=== PATIENT | female | born 1985 | race Caucasian/White ===

== ENCOUNTER 2016-08-31 09:24 | Inpatient (IN) | payer OTHER ==
[~2016-08-31] VITALS: Ht 167.6 cm; Wt 88.0 kg
[~2016-08-31 09:24] MED LIST: IBU800 MG PO
[2016-08-31] MEDS ORDERED: SUBOXONE 8 MG-1 EACH PO (10:08)
[2016-08-31] MEDS ORDERED: PRENATAL ONE D1 EACH PO (10:09)
[2016-08-31 10:57] LABS: ABSOLUTE BASOPHIL COUNT 0 /CUMM (0.0-0.2); ABSOLUTE EOSINOPHIL COUNT 0.1 /CUMM (0.0-0.7); ABSOLUTE GRANULOCYTE CT 5.7 /CUMM (1.4-6.5); ABSOLUTE LYMPH COUNT 2.3 /CUMM (1.2-3.4); ABSOLUTE MONOCYTE COUNT 0.7 /CUMM (0.10-0.60); BASOPHIL % 0.4 % (0.0-2.0); EOSINOPHIL % 1.4 % (0-5); GRANULOCYTE % 64.5 % (42.2-75.2); HEMATOCRIT 37.4 % (37-47); MEAN CORPUSCULAR HGB 29.8 PG (27.0-31.0); MEAN CORPUSCULAR VOLUME 87.7 FL (81.0-99.0); MEAN PLATELET VOLUME 9.1 FL (7.4-10.4); PLATELET COUNT 244 /CUMM (130-400); RBC DISTRIBUTION WIDTH 13.8 % (11.5-14.5); RED BLOOD CELL CT 4.27 /CUMM (4.20-5.40); WHITE BLOOD CELL COUNT 8.9 /CUMM (4.8-10.8)
--- NOTE | 2016-09-14 09:30 | Surgical Discharge Summary ---
Visit Information Visit Dates Admission Date: 08/31/16 Discharge Date: 08/31/16 History of Present Illness Chief Complaint: Desires elective induction Medical History History of MRSA: No History of VRE: No History of CDIFF: No Influenza Vaccine: 06/16/13 Surgical History Pertinent Surgical History: none Psychosocial History Who Do You Live With? Patient/Self Services at Home: None What is Your Primary Language? Welsh Review of Systems: Negative Hospital Course Course Attending Physician: FELIX WHYTE MD Primary Care Physician: PATIENT HAS NO PRIMARY CARE DR Hospital Course: Patient was admitted for induction of labor and was placed on Pitocin for 10 hours. She made no cervical change and was discharged home Allergies: Coded Allergies: NO KNOWN ALLERGIES (08/31/16) Disposition Summary Disposition Principal Diagnosis: Term Additional Diagnosis: Poor Cheek score Discharge Disposition: home or self care Discharge Instructions General Discharge Information Code Status: Full Code Patient's Diet: Regular Patient's Activity: Pelvic rest Follow-Up Instructions/Appts: [address] Whyte's office
--- NOTE | 2016-09-14 09:38 | Discharge Summary ---
PATIENT CARE UNIT CONFIDENTIAL COPY ADMITTED: 08/31/16 DISCHARGED: 08/31/16 Visit Information Visit Dates Admission Date: 08/31/16 Discharge Date: 08/31/16 History of Present Illness Chief Complaint: Desires elective induction Medical History History of MRSA: No History of VRE: No History of CDIFF: No Influenza Vaccine: 06/16/13 Surgical History Pertinent Surgical History: none Psychosocial History Who Do You Live With? Patient/Self Services at Home: None What is Your Primary Language? German Review of Systems: Negative Hospital Course Course Attending Physician: FELIX WHYTE MD Primary Care Physician: PATIENT HAS NO PRIMARY CARE DR Hospital Course: Patient was admitted for induction of labor and was placed on Pitocin for 10 hours. She made no cervical change and was discharged home Allergies: Coded Allergies: NO KNOWN ALLERGIES (08/31/16) Disposition Summary Disposition Principal Diagnosis: Term Additional Diagnosis: Poor Cheek score Discharge Disposition: home or self care Discharge Instructions General Discharge Information Code Status: Full Code Patient's Diet: Regular Patient's Activity: Pelvic rest Follow-Up Instructions/Appts: [address] Whyte's office DICTATED BY: FELIX WHYTE MD DATE/TIME DICTATED:09/14/16924 [employer] SAWYER:NADIR DATE/TIME TRANSCRIBED:09/14/16924 REPORT NUMBER:[id number] CONFIDENTIAL, DO NOT COPY WITHOUT APPROPRIATE AUTHORIZATION.
== END 2016-08-31 19:30 | DRG 566 ==
LOC: GNO 09:24
PROVIDERS: ADMIT Obstetrics & Gynecology
PROC: 3E033VJ Introduction of Other Hormone into Peripheral Vein, Percutaneous Approach (ICD-10-PCS; principal; 2016-08-31)
DX: O61.0 Failed medical induction of labor (principal); Z3A.41 41 weeks gestation of pregnancy
CPT/HCPCS: GNOP; 80307; 81001; 87389; J7120

== ENCOUNTER 2016-09-04 08:33 | Inpatient (IN) | payer OTHER ==
[~2016-09-04] VITALS: Ht 167.6 cm; Wt 87.1 kg
[~2016-09-04 08:33] MED LIST changes: +PRENATAL ONE D1 EACH PO; +SUBOXONE 8 MG-1 EACH PO
[2016-09-04 09:51] LABS: ABSOLUTE BASOPHIL COUNT 0 /CUMM (0.0-0.2); ABSOLUTE EOSINOPHIL COUNT 0.1 /CUMM (0.0-0.7); ABSOLUTE GRANULOCYTE CT 6.8 /CUMM (1.4-6.5); ABSOLUTE LYMPH COUNT 2.3 /CUMM (1.2-3.4); ABSOLUTE MONOCYTE COUNT 0.6 /CUMM (0.10-0.60); BASOPHIL % 0.2 % (0.0-2.0); EOSINOPHIL % 1.5 % (0-5); GRANULOCYTE % 68.9 % (42.2-75.2); HEMATOCRIT 38.2 % (37-47); MEAN CORPUSCULAR HGB 29.5 PG (27.0-31.0); MEAN CORPUSCULAR HGB CONC 33.2 G/DL (33.0-37.0); MEAN CORPUSCULAR VOLUME 88.9 FL (81.0-99.0); MEAN PLATELET VOLUME 8.9 FL (7.4-10.4); PLATELET COUNT 244 /CUMM (130-400); WHITE BLOOD CELL COUNT 9.9 /CUMM (4.8-10.8)
--- NOTE | 2016-09-04 14:41 | Labor & Delivery Summary ---
Delivery Summary Vaginal Delivery: Vaginal: vertex : : vacuum Episiotomy/Lacerations: Episiotomy/Lacerations: epis Type: RML Repair: layered Anesthesia: epi Placenta: Placenta: spontanteous, normal, 3 vessel Anesthesia: epidural Cord PH Value: 7.24 Baby's Weight: p sts Apgars - 1 Min: 9 Apgars - 5 Min: 9
--- NOTE | 2016-09-04 15:00 | History & Physical ---
General Information and HPI MD Statement: I have seen and personally examined WHITLEY GUTIERRES and documented this H&P. The patient is a 30 year old female at [41] weeks and [5] days gestation who presented with a chief complaint of [IOL]. Source of Information: police History of Present Illness: 30yo lmp 11/18/15 EDC 08/24/16 for IOL; care sig for suboxone 8mg bid. 7cm on initial exam. Allergies/Medications Allergies: Coded Allergies: NO KNOWN ALLERGIES (08/31/16) Home Med list Buprenorphine HCl/Naloxone HCl (Suboxone 8 MG-2 MG Sl Film) 8 MG-2 MG FILM 8 MG PO BID MENTAL HEALTH (Reported) Vit No.129/Iron/FA ( One Daily Tablet) 27 MG IRON-800 MCG TABLET 1 TAB PO DAILY (Reported) Past History user experience analyst History : 6 Para: 3 Last Menstrual Period: 11/18/15 Estimated Delivery Date: 08/24/16 Past user experience analyst History: non-contributory Surgical History Pertinent Surgical History: none Past Family/Social History Psychosocial History Smoking Status: Current Everyday Smoker Review of Systems Review of Systems Constitutional: Reports: no symptoms. EENTM: Reports: no symptoms. Cardiovascular: Reports: no symptoms. Respiratory: Reports: no symptoms. GI: Reports: no symptoms. Genitourinary: Reports: no symptoms. Musculoskeletal: Reports: no symptoms. Skin: Reports: no symptoms. Neurological/Psychological: Reports: no symptoms. Hematologic/Endocrine: Reports: no symptoms. Immunologic/Allergic: Reports: no symptoms. All Other Systems: Reviewed and Negative Exam & Diagnostic Data Last 24 Hrs of Vital Signs/I&O Intake & Output 09/04 1600 09/04 0800 09/04 0000 Intake Total Output Total Balance Patient 192 lb Weight Obstetric Exam Wgt Gained During : 36 Pelvimetry: gynecoid Dilation (cm): 7 Effacement (%): 100 Station: 0 Membranes: intact Fluid: clear Fundal Height (cm): 40 Multiple Gestation? No Contractions: q3 #1 - FHR Baseline: 140 Category: 1 Estimated Weight: 7 Presentation: cephalic Infant #2 - FHR Baseline: 150 Category: 1 Estimated Weight: 875 Presentation: [facility] Patient for Induction? No Labs Blood Type & Rh: o pos Antibody Screen: neg Hct/Hgb & Platelets #1: Hct/Hgb & Platelets #2: Rubella: imm VDRL #1: nr VDRL #2: nr HbsAg: neg HIV #1: neg HIV #2 neg 1 Hr P Group B Strep: neg Initial Ultrasound: wnl Anatomy Ultrasound: wnl Ultrasound for EFW: 6 Genetic Testing: neg Last 24 Hrs of Labs/Jin: Laboratory Tests 09/04/16 0900: CBC w Diff Cancelled, WBC Cancelled, RBC Cancelled, Hgb Cancelled, Hct Cancelled , MCV Cancelled, MCH Cancelled, RDW Cancelled, Plt Count Cancelled, MPV Cancelled, PUBS MCHC Cancelled 09/04/16 0845: CBC w Diff NO MAN DIFF REQ, RBC 4.30, MCV 88.9, MCH 29.5, RDW 14.0, MPV 8.9, Gran % 68.9, Lymphocytes % 23.3, Monocytes % 6.1, Eosinophils % 1.5, Basophils % 0.2, Absolute Granulocytes 6.8 H, Absolute Lymphocytes 2.3, Absolute Monocytes 0.6, Absolute Eosinophils 0.1, Absolute Basophils 0, PUBS MCHC 33.2 09/04/16 0840: Urine Opiates Screen < 100.00, Methadone Screen 41, Barbiturate Screen < 60, Ur Phencyclidine Scrn < 6.00, Amphetamines Screen < 100, U Benzodiazepines Scrn < 85, Urine Cocaine Screen < 50, Urine Cannabis Screen < 5.00, Urinalysis LIGHT H , Urine Color YEL, Urine Clarity CLEAR, Urine pH 7.0, Ur Specific [place] 1.020, Urine Protein NEG, Urine Ketones NEG, Urine Nitrite NEG, Urine Bilirubin NEG, Urine Urobilinogen 1.0, Ur Leukocyte Esterase NEG, Ur Microscopic SEDIMENT EXAMINED, Urine RBC 1-3, Ur Epithelial Cells MOD H, Urine Hemoglobin SMALL H, Urine Glucose NEG Microbiology 09/04 1115 URINE ROUT: Urine Culture - RECD ITS Data ITS Data Unobtainable at this time Assessment/Plan Assessment/Plan: postdates active labor exp mgmt As Ranked By This Provider Problem List: 1. Post-dates Core Measures/Miscellaneous Venous Thromboembolism VTE Risk Factors: / VTE Contraindications: No Contraindications VTE Prophylaxis Ordered Inpt: Early Ambulation VTE Diagnosis: No Beta Martha Is Beta Martha a Home Med? No Antibiotics Is Patient on Antibiotics? No
[2016-09-05 08:16] LABS: ABSOLUTE BASOPHIL COUNT 0 /CUMM (0.0-0.2); ABSOLUTE EOSINOPHIL COUNT 0.2 /CUMM (0.0-0.7); ABSOLUTE GRANULOCYTE CT 6.8 /CUMM (1.4-6.5); ABSOLUTE LYMPH COUNT 2.8 /CUMM (1.2-3.4); ABSOLUTE MONOCYTE COUNT 0.8 /CUMM (0.10-0.60); BASOPHIL % 0.3 % (0.0-2.0); EOSINOPHIL % 1.7 % (0-5); GRANULOCYTE % 64.2 % (42.2-75.2); HEMATOCRIT 34.5 % (37-47); MEAN CORPUSCULAR HGB 30.1 PG (27.0-31.0); MEAN CORPUSCULAR HGB CONC 33.7 G/DL (33.0-37.0); MEAN CORPUSCULAR VOLUME 89.2 FL (81.0-99.0); MEAN PLATELET VOLUME 9.1 FL (7.4-10.4); PLATELET COUNT 205 /CUMM (130-400); RBC DISTRIBUTION WIDTH 14.5 % (11.5-14.5); RED BLOOD CELL CT 3.87 /CUMM (4.20-5.40); WHITE BLOOD CELL COUNT 10.6 /CUMM (4.8-10.8)
[2016-09-06] MEDS ORDERED: IBUPROFEN800 M1 PO (11:46)
[2016-09-06] MEDS ORDERED: DOCUSATE SODIU100 M3 PO (11:46)
== END 2016-09-06 12:00 | DRG 560 ==
LOC: GNO 08:33
PROVIDERS: ADMIT Obstetrics & Gynecology
PROC: 10E0XZZ Delivery of Products of Conception, External Approach (ICD-10-PCS; principal; 2016-09-04)
PROC: 0W8NXZZ Division of Female Perineum, External Approach (ICD-10-PCS; principal; 2016-09-04)
DX: O48.0 Post-term pregnancy (principal); Z3A.41 41 weeks gestation of pregnancy; Z37.0 Single live birth; O99.334 Smoking (tobacco) complicating childbirth
CPT/HCPCS: GNOS; 36415; 80307; 81001; 87086; 88307; J7120